=== PATIENT | female | born 1985 ===

== ENCOUNTER 2017-05-15 03:29 | Inpatient (IN) | payer OTHER ==
[2017-05-15 05:56] LABS: Hematocrit 40 % (35-47); Hemoglobin 13.2 g/dl (12.0-16.0); Mean Corpuscular HGB Conc 33 g/dl (31-36); Mean Corpuscular Hemoglobin 32 pg (27-31); Mean Corpuscular Volume 96 fL (80-97); Mean Platelet Volume 10 um3 (7.4-10.4); Red Blood Count 4.12 10^6/ul (4.0-5.4); Red Cell Distribution Width 13 % (10.5-15)
[2017-05-15] MEDS ORDERED: Sodium Citrate/Citric Acid* 15 ML UDC PO PRN (06:46)
[2017-05-15] MEDS ORDERED: OBEPIDURAL* 250 ML ONE (06:46)
[2017-05-15] MEDS ORDERED: Phenylephrine IV* 40 MCG/ML 10 ML SYRINGE IV PUSH PRN (06:46)
[2017-05-15] MEDS ORDERED: Famotidine TAB* 20 MG PO PRN (06:46)
[2017-05-15] MEDS ORDERED: OBEPIDURAL* 250 ML EPIDURAL SCH (07:00)
[2017-05-15] MEDS ORDERED: Oxytocin in LR* 20 UNITS/1,000 ML BAG IVPB SCH ×2 (11:00→15:00)
[2017-05-15] MEDS ORDERED: Witch Hazel PAD* JAR TOPICAL PRN (14:57)
[2017-05-15] MEDS ORDERED: Dibucaine 1% 28.35 GM TUBE PR PRN (14:57)
[2017-05-15] MEDS ORDERED: Glycerin ADULT SUPP PR PRN (14:57)
[2017-05-15] MEDS ORDERED: Ibuprofen TAB* 600 MG PO PRN (14:57)
[2017-05-15] MEDS ORDERED: Acetaminophen TAB* 325 MG PO PRN (14:57)
[2017-05-15] MEDS ORDERED: Simethicone TAB* 80 MG TAB.CHEW PO SCH (17:30)
[2017-05-15] MEDS: Docusate CAP* 100 MG PO SCH (20:07)
[2017-05-16 07:08] LABS: Hematocrit 33 % (35-47); Hemoglobin 11.2 g/dl (12.0-16.0); Mean Corpuscular HGB Conc 34 g/dl (31-36); Mean Corpuscular Hemoglobin 32 pg (27-31); Mean Corpuscular Volume 95 fL (80-97); Mean Platelet Volume 10 um3 (7.4-10.4); Red Cell Distribution Width 13 % (10.5-15); White Blood Count 16.8 10^3/ul (3.5-10.8)
[2017-05-16] MEDS ORDERED: Ferrous Gluconate TAB* 324 MG TAB PO SCH (09:00)
[2017-05-16] MEDS: Docusate CAP* 100 MG PO SCH ×3 (09:00→21:16)
--- NOTE | 2017-05-17 07:59 | PTEDU ---
Patient Name: KAI SORENSON MARK SORENSONGALINA selected video: Never Ever Shake a Baby to view on 05/17/2017 at 7:59:25 AM [id number]
[2017-05-17] MEDS: Docusate CAP* 100 MG PO SCH (09:13)
[2017-05-17 09:38] VITALS: BP 122/84
== END 2017-05-17 12:35 | disposition home or self-care (01) | DRG 560 ==
LOC: MCHOBOUT 03:29 → MCHOB 03:50
PROVIDERS: ADMIT Midwife; ATTEND Midwife
PROC: 10E0XZZ Delivery of Products of Conception, External Approach (ICD-10-PCS; principal; 2017-05-15)
PROC: 4A1HXCZ Monitoring of Products of Conception, Cardiac Rate, External Approach (ICD-10-PCS; 2017-05-15)
PROC: 0HQ9XZZ Repair Perineum Skin, External Approach (ICD-10-PCS; 2017-05-15)
DX: O48.0 Post-term pregnancy (principal); O32.2XX0 Maternal care for transverse and oblique lie, not applicable or unspecified; K64.9 Unspecified hemorrhoids; Z3A.40 40 weeks gestation of pregnancy; Z37.0 Single live birth; O32.6XX0 Maternal care for compound presentation, not applicable or unspecified; O70.0 First degree perineal laceration during delivery; R03.0 Elevated blood-pressure reading, without diagnosis of hypertension; O75.89 Other specified complications of labor and delivery
CPT/HCPCS: 36415; 85025; 86850; 86900; 86901; A9270-GY